=== PATIENT | female | born 1975 | race Caucasian/White ===

== ENCOUNTER 2020-06-28 07:45 | Outpatient (CLI) | payer BC, OTHER ==
[2020-06-28] MEDS ORDERED: ACYC-114 PO (08:13)
[2020-06-28] MEDS ORDERED: ASCO100018 PO (08:13)
[2020-06-28] MEDS ORDERED: HAIR SKIN & NAILS PO (08:13)
[2020-06-28] MEDS ORDERED: WOMEN'S ONE A DAY PO (08:13)
[2020-06-28 08:50] LABS: BASOPHILS % (AUTO) 1 % (0-1); EOSINOPHILS % (AUTO) 1 % (1-7); LYMPHOCYTES % (AUTO) 30 % (22-44); MEAN CORPUSCULAR HEMOGLOBIN 30.1 pg (27.0-34.8); MEAN CORPUSCULAR HGB CONC 34.1 g/dL (32.4-35.8); MEAN PLATELET VOLUME 8.6 fL (7.4-10.4); MONOCYTES % (AUTO) 7 % (2-9); NEUTROPHILS % (AUTO) 62 % (42-75); PLATELET COUNT 327 x10^3/uL (130-400); RED BLOOD COUNT 4.89 x10^6/uL (3.82-5.3); RED CELL DISTRIBUTION WIDTH 14.1 % (9.6-15.2)
[2020-06-28 09:00] LABS: MICROSCOPIC INDICATED
[2020-06-28 09:01] LABS: ALANINE AMINOTRANSFERASE 16 U/L (12-78); ALBUMIN 3.8 g/dL (3.4-5.0); ANION GAP 4 mmol/L (5-15); CALCIUM 8.7 mg/dL (8.5-10.1); CHLORIDE 110 mmol/L (98-107)
[2020-06-28 09:06] LABS: ALKALINE PHOSPHATASE 59 U/L (45-117); BILIRUBIN,TOTAL 0.6 mg/dL (0.2-1.0); CREATININE 0.79 mg/dL (0.55-1.02); TOTAL PROTEIN 7.2 g/dL (6.4-8.2)
[2020-06-28 09:17] LABS: MD NO
== END 2020-06-28 23:59 | disposition home or self-care (01) ==
LOC: STAR 07:45
PROVIDERS: ATTEND Obstetrics & Gynecology Gynecology
DX: Z01.812 Encounter for preprocedural laboratory examination (principal); Z20.828 Contact with and (suspected) exposure to other viral communicable diseases; N93.9 Abnormal uterine and vaginal bleeding, unspecified; D25.9 Leiomyoma of uterus, unspecified; N85.2 Hypertrophy of uterus; R94.31 Abnormal electrocardiogram [ECG] [EKG]
CPT/HCPCS: 36415; 71046; 80053; 81001; 84702; 85025; 87086; 87635; 93005

== ENCOUNTER 2020-07-05 09:13 | Day surgery (SDC) | payer BC, OTHER ==
[~2020-07-05] VITALS: Ht 162.6 cm; Wt 89.8 kg
[~2020-07-05 09:13] MED LIST: ACYC-114 PO; ASCO100018 PO; HAIR SKIN & NAILS PO; WOMEN'S ONE A DAY PO
[2020-07-05] MEDS ORDERED: LACTATED RINGERS 1,000 ML IV ONE (09:47)
[2020-07-05] MEDS ORDERED: CHLORHEXIDINE 15 ML UDC MM STA (09:47)
[2020-07-05 09:54] LABS: HCG UR SG 1.018 (1.003-1.030)
[2020-07-05] MEDS ORDERED: CHLORHEXIDINE 15 ML UDC ONE (09:56)
[2020-07-05] MEDS ORDERED: FENTANYL PF 250 MCG/5ML ONE ×3 (11:09→13:07)
[2020-07-05] MEDS ORDERED: MIDAZOLAM 1 MG/ML, 2ML ONE (11:09)
[2020-07-05] MEDS ORDERED: GLYCOPYRROLATE 0.2MG/1ML, 5ML ONE (11:17)
[2020-07-05] MEDS ORDERED: CEFAZOLIN 1,000 MG ONE (11:17)
[2020-07-05] MEDS ORDERED: ONDANSETRON 2MG/ML, 2ML ONE (11:17)
[2020-07-05] MEDS ORDERED: NEOSTIGMINE 1 MG/ML, 10ML ONE (11:17)
[2020-07-05] MEDS ORDERED: ROCURONIUM 10MG/ML,5ML ONE (11:17)
[2020-07-05] MEDS ORDERED: DEXAMETHASONE 4 MG/ML, 1ML ONE (11:17)
[2020-07-05] MEDS ORDERED: PROPOFOL 10 MG/ML, 20ML ONE (11:17)
[2020-07-05] MEDS ORDERED: MANNITOL PMX 20% 500 ML ONE (11:38)
[2020-07-05] MEDS ORDERED: BUPIVACAINE/PF 0.25% ONE (11:38)
[2020-07-05] MEDS ORDERED: EPINEPHRINE 1 MG/ML, 1ML ONE (11:38)
[2020-07-05] MEDS ORDERED: morphine SULFATE 10 MG/ML, 1ML IVPush PRN (12:00)
[2020-07-05] MEDS ORDERED: PROMETHAZINE 25 MG/ML, 1ML IVPush PRN (12:00)
[2020-07-05] MEDS ORDERED: HYDROmorphone 1 MG/ML, 1ML INJ IVPush PRN (12:00)
[2020-07-05] MEDS ORDERED: OXYcodone 5 MG/5 ML ORAL.SOL UDC PO PRN (12:00)
[2020-07-05] MEDS ORDERED: FENTANYL PF 100 MCG/2ML IV PRN (12:00)
[2020-07-05] MEDS ORDERED: HALOPERIDOL 5 MG/ML IV PRN (12:00)
[2020-07-05] MEDS ORDERED: MEPERIDINE/PF 25MG/0.5ML IVPush PRN (12:00)
[2020-07-05] MEDS ORDERED: hydrALAzine 20 MG/ML, 1ML IV PRN (12:00)
[2020-07-05] MEDS ORDERED: ACETAMINOPHEN 325 MG TABLET PO PRN (12:00)
[2020-07-05] MEDS ORDERED: LABETALOL 5MG/ML, 20ML IV PRN (12:00)
[2020-07-05] MEDS ORDERED: KETOROLAC 30 MG/1 ML ONE (12:04)
== END 2020-07-05 18:15 | disposition home or self-care (01) ==
LOC: OUT 09:13
PROVIDERS: ATTEND Obstetrics & Gynecology Gynecology
DX: N93.9 Abnormal uterine and vaginal bleeding, unspecified (principal); Z20.828 Contact with and (suspected) exposure to other viral communicable diseases; D25.9 Leiomyoma of uterus, unspecified; N83.8 Other noninflammatory disorders of ovary, fallopian tube and broad ligament; N73.6 Female pelvic peritoneal adhesions (postinfective); G43.909 Migraine, unspecified, not intractable, without status migrainosus; Z79.899 Other long term (current) drug therapy
CPT/HCPCS: 36415; 58571; 81025; 86850; 86900; 87635; 88307; J0171; J0690; J1100; J1885; J2250; J2405; J2704; J2710; J3010; J7120; S2900